=== PATIENT | female | born 1995 | race Caucasian/White ===

== ENCOUNTER 2018-04-11 19:21 | Emergency (ER) | payer OTHER ==
[2018-04-11] MEDS ORDERED: ACETAMINOPHEN 325 MG TABLET (FP) PO ONE (19:38)
--- NOTE | 2018-04-11 19:38 | PDOC ---
Rapid Medical Evaluation Time Seen by Provider: 04/11/18 19:32 Medical Evaluation: 04/11/18 19:32 I have performed a brief in-person evaluation of this patient. The patient presents with a chief complaint of: s/p in [facility] on 04/08/18, now with fever/DEL CID and bodyaches. Denies abd pain. Pertinent physical exam findings: febrile in triage, appears uncomfort, benign abd, CTA. I have ordered the following:ua, tylenol, basic labs The patient will proceed to the ED for further evaluation. 04/11/18 19:39
[2018-04-11 19:42] VITALS: BMI 60.5
[2018-04-11 20:07] LABS: BASO % 0.3 % (0-2.0); EOS % 0.5 % (0-4.5); HEMATOCRIT 31.7 % (32.4-45.2); HEMOGLOBIN 10.7 GM/dL (10.7-15.3); LYMPH % 13.1 % (8-40); MCH 29.2 pg (25.7-33.7); MCHC 33.7 g/dl (32.0-36.0); MEAN CELL VOLUME 86.8 fl (80-96); MEAN PLT VOLUME 7.4 fl (7.5-11.1); MONO % 10.1 % (3.8-10.2); PLATELET COUNT 260 K/MM3 (134-434); RBC 3.66 M/mm3 (3.60-5.2); RDW 16.1 % (11.6-15.6); WHITE BLOOD COUNT 9.4 K/mm3 (4.0-10.0)
[2018-04-11 20:17] LABS: URINE APPEARANCE CLOUDY; URINE BILIRUBIN NEGATIVE (<2.0 mg/dL); URINE COLOR YELLOW; URINE GLUCOSE (UA) NEGATIVE (NEGATIVE); URINE KETONE NEGATIVE (NEGATIVE); URINE NITRITE NEGATIVE (NEGATIVE); URINE UROBILINOGEN NEGATIVE mg/dL (0.2-1.0)
[2018-04-11 20:19] LABS: URINE LEUK ESTERASE 3+ (NEGATIVE); URINE PROTEIN 2+ (NEGATIVE)
[2018-04-11 20:21] LABS: EPI CELLS MODERATE /HPF (FEW)
[2018-04-11 20:26] LABS: ANION GAP 9 (8-16); BLOOD UREA NITROGEN 10 mg/dL (7-18); CALCIUM 7.7 mg/dL (8.5-10.1); CHLORIDE 109 mmol/L (98-107); CO2 23 mmol/L (21-32); CREATININE 0.8 mg/dL (0.55-1.02); GLUCOSE,RANDOM 91 mg/dL (74-106); POTASSIUM 3.6 mmol/L (3.5-5.1); SODIUM 141 mmol/L (136-145)
[2018-04-11 20:50] LABS: URINE BACTERIA FEW /hpf (NONE SEEN)
--- NOTE | 2018-04-11 21:41 | PDOC ---
History of Present Illness - General Chief Complaint: SIRS, Suspected/Possible Stated Complaint: C SECTION PAIN Time Seen by Provider: 04/11/18 19:32 - History of Present Illness Initial Comments: 04/11/18 21:41 The patient presents with a chief complaint of: s/p in [facility] on 04/08/18, now with fever/DEL CID and bodyaches. Denies abd pain. Pertinent physical exam findings: febrile in triage, appears uncomfort, benign abd, CTA. I have ordered the following:ua, tylenol, basic labs The patient will proceed to the ED for further evaluation. Past History - Past Medical History Allergies/Adverse Reactions: Allergies Allergy/AdvReac Type Severity Reaction Status Date / Time No Known Allergies Allergy Verified 04/11/18 19:41 - Suicide/Smoking/Psychosocial Hx Smoking History: Never smoked Information on smoking cessation initiated: No Hx Alcohol Use: No Drug/Substance Use Hx: No *Physical Exam - Vital Signs Last Vital Signs Temp Pulse Resp BP Pulse Ox 102.5 F H 113 H 20 125/71 100 04/11/18 19:38 04/11/18 19:38 04/11/18 19:38 04/11/18 19:38 04/11/18 19:38 ED Treatment Course - LABORATORY CBC & Chemistry Diagram: 04/11/18 19:59 04/11/18 19:59 - ADDITIONAL ORDERS Additional order review: Laboratory Results 04/11/18 04/11/18 19:59 19:45 Sodium 141 Potassium 3.6 Chloride 109 H Carbon Dioxide 23 Anion Gap 9 BUN 10 Creatinine 0.8 Creat Clearance w eGFR > 60 Random Glucose 91 Calcium 7.7 L Urine Color Yellow Urine Appearance Cloudy Urine pH 7.0 Ur Specific [place] 1.012 Urine Protein 2+ H Urine Glucose (UA) Negative Urine Ketones Negative Urine Blood 3+ H Urine Nitrite Negative Urine Bilirubin Negative Urine Urobilinogen Negative Ur Leukocyte Esterase 3+ H Urine WBC (Auto) 542 Urine RBC (Auto) 98 Ur Epithelial Cells Moderate Urine Bacteria Few 04/11/18 19:59 RBC 3.66 MCV 86.8 MCHC 33.7 RDW 16.1 H MPV 7.4 L Neutrophils % 76.0 Lymphocytes % 13.1 Monocytes % 10.1 Eosinophils % 0.5 Basophils % 0.3 - Medications Given in the ED: ED Medications Discontinued Medications Generic Name Dose Route Start Last Admin Trade Name Freq PRN Reason Stop Dose Admin Acetaminophen 650 mg 04/11/18 19:38 04/11/18 19:42 Tylenol - PO 04/11/18 19:39 650 mg ONCE ONE Administration
[2018-04-11] MEDS ORDERED: CEFTRIAXONE 1,000 MG in DEXTROSE 5%-WATER - 50 ML IVPB ONE (21:51)
[2018-04-11] MEDS ORDERED: SODIUM CHLORIDE 1,000 ML IV STA (21:51)
--- NOTE | 2018-04-11 21:51 | PDOC ---
History of Present Illness - General Chief Complaint: SIRS, Suspected/Possible Stated Complaint: urinary symptoms Time Seen by Provider: 04/11/18 19:32 History Source: Patient - History of Present Illness Initial Comments: 04/11/18 22:12 22-year-old female status post normal spontaneous vaginal delivery at 39 weeks gestation 4 days ago complaining of fever and chills and body aches with dysuria and right flank pain. Patient denies any abdominal pain, chest pain, nausea, vomiting, diarrhea has been having normal vaginal bleeding since delivery. Fever started today. Past History - Past Medical History Allergies/Adverse Reactions: Allergies Allergy/AdvReac Type Severity Reaction Status Date / Time No Known Allergies Allergy Verified 04/11/18 19:41 Home Medications: Ambulatory Orders Cefdinir [Omnicef -] 300 mg PO BID #20 capsule 04/11/18 - Suicide/Smoking/Psychosocial Hx Smoking History: Never smoked Information on smoking cessation initiated: No Hx Alcohol Use: No Drug/Substance Use Hx: No Review of Systems - Review of Systems Able to Perform ROS?: Yes Is the patient limited Mongolian proficient: No Constitutional: Yes: Chills, Fever *Physical Exam - Vital Signs Last Vital Signs Temp Pulse Resp BP Pulse Ox 102.5 F H 113 H 20 125/71 100 04/11/18 19:38 04/11/18 19:38 04/11/18 19:38 04/11/18 19:38 04/11/18 19:38 - Physical Exam General Appearance: Yes: Appropriately Dressed Respiratory/Chest: positive: Lungs Clear, Normal Breath Sounds Cardiovascular: positive: Regular Rhythm, Regular Rate Gastrointestinal/Abdominal: positive: Normal Bowel Sounds, Soft. negative: Tender Musculoskeletal: positive: Normal Inspection, CVA Tenderness, CVA Tenderness (R) Extremity: positive: Normal Capillary Refill, Normal Inspection, Normal Range of Motion ED Treatment Course - LABORATORY CBC & Chemistry Diagram: 04/11/18 19:59 04/11/18 19:59 - ADDITIONAL ORDERS Additional order review: Laboratory Results 04/11/18 04/11/18 19:59 19:45 Sodium 141 Potassium 3.6 Chloride 109 H Carbon Dioxide 23 Anion Gap 9 BUN 10 Creatinine 0.8 Creat Clearance w eGFR > 60 Random Glucose 91 Calcium 7.7 L Urine Color Yellow Urine Appearance Cloudy Urine pH 7.0 Ur Specific [place] 1.012 Urine Protein 2+ H Urine Glucose (UA) Negative Urine Ketones Negative Urine Blood 3+ H Urine Nitrite Negative Urine Bilirubin Negative Urine Urobilinogen Negative Ur Leukocyte Esterase 3+ H Urine WBC (Auto) 542 Urine RBC (Auto) 98 Ur Epithelial Cells Moderate Urine Bacteria Few 04/11/18 19:59 RBC 3.66 MCV 86.8 MCHC 33.7 RDW 16.1 H MPV 7.4 L Neutrophils % 76.0 Lymphocytes % 13.1 Monocytes % 10.1 Eosinophils % 0.5 Basophils % 0.3 - Medications Given in the ED: ED Medications Discontinued Medications Generic Name Dose Route Start Last Admin Trade Name Freq PRN Reason Stop Dose Admin Acetaminophen 650 mg 04/11/18 19:38 04/11/18 19:42 Tylenol - PO 04/11/18 19:39 650 mg ONCE ONE Administration *DC/Admit/Observation/Transfer Diagnosis at time of Disposition: Pyelonephritis - Discharge Dispostion Disposition: HOME - Prescriptions Prescriptions: Cefdinir [Omnicef -] 300 mg PO BID #20 capsule - Referrals - Patient Instructions Printed Discharge Instructions: Kidney Infection Additional Instructions: drink plenty of fluids. take cefdinir as prescribed. take tylenol every 6 hour as prescribed. take ibuprofen every 6 hours as prescribed. follow up with your doctor as soon as possible. return to the ER if symptoms worsen - Post Discharge Activity
[2018-04-11] MEDS ORDERED: KETOROLAC TROMETHAMINE 30 MG/1 ML VIAL IVPUSH ONE (21:52)
[2018-04-11] MEDS ORDERED: KETOROLAC TROMETHAMINE 30 MG/1 ML VIAL ONE (21:53)
[2018-04-11] MEDS ORDERED: CEFTRIAXONE 1 GM/50 ML BAG ONE (21:53)
--- NOTE | 2018-04-11 22:46 | PDOC ---
*Physical Exam - Vital Signs Last Vital Signs Temp Pulse Resp BP Pulse Ox 102.5 F H 113 H 20 125/71 100 04/11/18 19:38 04/11/18 19:38 04/11/18 19:38 04/11/18 19:38 04/11/18 19:38 ED Treatment Course - LABORATORY CBC & Chemistry Diagram: 04/11/18 19:59 04/11/18 19:59 - ADDITIONAL ORDERS Additional order review: Laboratory Results 04/11/18 04/11/18 19:59 19:45 Sodium 141 Potassium 3.6 Chloride 109 H Carbon Dioxide 23 Anion Gap 9 BUN 10 Creatinine 0.8 Creat Clearance w eGFR > 60 Random Glucose 91 Calcium 7.7 L Urine Color Yellow Urine Appearance Cloudy Urine pH 7.0 Ur Specific [place] 1.012 Urine Protein 2+ H Urine Glucose (UA) Negative Urine Ketones Negative Urine Blood 3+ H Urine Nitrite Negative Urine Bilirubin Negative Urine Urobilinogen Negative Ur Leukocyte Esterase 3+ H Urine WBC (Auto) 542 Urine RBC (Auto) 98 Ur Epithelial Cells Moderate Urine Bacteria Few 04/11/18 19:59 RBC 3.66 MCV 86.8 MCHC 33.7 RDW 16.1 H MPV 7.4 L Neutrophils % 76.0 Lymphocytes % 13.1 Monocytes % 10.1 Eosinophils % 0.5 Basophils % 0.3 - Medications Given in the ED: ED Medications Discontinued Medications Generic Name Dose Route Start Last Admin Trade Name Tree PRN Reason Stop Dose Admin Acetaminophen 650 mg 04/11/18 19:38 04/11/18 19:42 Tylenol - PO 04/11/18 19:39 650 mg ONCE ONE Administration Ceftriaxone Sodium 1,000 mg/ 50 mls @ 100 mls/hr 04/11/18 21:51 04/11/18 22: 06 Dextrose IVPB 04/11/18 22:20 100 mls/hr ONCE ONE Administration Ketorolac Tromethamine 30 mg 04/11/18 21:52 04/11/18 22:06 Toradol Injection - IVPUSH 04/11/18 21:53 30 mg ONCE ONE Administration Medical Decision Making - Medical Decision Making 04/11/18 22:46 agree with care from [facility] *DC/Admit/Observation/Transfer Diagnosis at time of Disposition: Pyelonephritis - Discharge Dispostion Disposition: HOME - Prescriptions Prescriptions: Cefdinir [Omnicef -] 300 mg PO BID #20 capsule - Referrals - Patient Instructions Printed Discharge Instructions: Kidney Infection Additional Instructions: drink plenty of fluids. take cefdinir as prescribed. take tylenol every 6 hour as prescribed. take ibuprofen every 6 hours as prescribed. follow up with your doctor as soon as possible. return to the ER if symptoms worsen - Post Discharge Activity
[2018-04-11 22:59] VITALS: BP 106/67; PULSE 84; TEMP 98.4
== END 2018-04-11 23:02 | disposition home or self-care (01) ==
LOC: JER 19:21
PROC: 3E03329 Introduction of Other Anti-infective into Peripheral Vein, Percutaneous Approach (ICD-10-PCS; principal; 2018-04-11)
PROC: 3E0333Z Introduction of Anti-inflammatory into Peripheral Vein, Percutaneous Approach (ICD-10-PCS; 2018-04-11)
DX: O90.89 Other complications of the puerperium, not elsewhere classified (principal); O86.21 Infection of kidney following delivery
CPT/HCPCS: 36415; 80048; 81003; 81015; 85025; 96365; 96375; 99282-25; J7030